=== PATIENT | male | born 1955 | race Two or more races ===

== ENCOUNTER → 2022-12-23 | Outpatient (CLI) | payer OTHER ==
--- NOTE | 2022-12-25 23:14 | XR ---
EXAMINATION TYPE: XR cervical spine 3 views limited DATE OF EXAM: 12/23/2022 Comparison: None Clinical History: 67-year-old male M54.12 Findings: No predental space widening or prevertebral soft tissue swelling. The patient's neck is shifted towar ds the right. This obliquity limits the lateral view. 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 Alignment overall appears normal. Normal odontoid view. Scattered facet and uncovertebral joint arthropathy is suggested. 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 No prevertebral sof t tissue swelling or malalignment.
== END | disposition home or self-care (01) ==
LOC: RADXRMAIN 15:49
PROVIDERS: ATTEND Internal Medicine
DX: M54.12 Radiculopathy, cervical region (principal)
CPT/HCPCS: 72040

== ENCOUNTER → 2023-05-09 | Outpatient (CLI) | payer MEDICARE, OTHER ==
--- NOTE | 2023-05-10 09:38 | FL ---
Modified barium swallow. HISTORY: Dysphagia. Modified barium swallow was performed with the department of speech pathology. The patient was prese nted with various consistencies of barium. Single episode of aspiration noted with thin liquid barium. 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 Pooling of contrast within the vallecula. Full report is to follow by the department speech pathology. Impression: As above
== END | disposition home or self-care (01) ==
LOC: RADFLMAIN 11:08
PROVIDERS: ATTEND Internal Medicine
DX: R13.10 Dysphagia, unspecified (principal)
CPT/HCPCS: 74230